=== PATIENT | male | born 1990 | race Caucasian/White ===

== ENCOUNTER 2018-08-16 14:51 | Emergency (ER) | payer MEDICAID ==
[2018-08-16 14:52] VITALS: BMI 25.8
[2018-08-16 15:04] VITALS: BP 113/67; PULSE 60; RESP 16; TEMP 98.4; O2SAT 99
--- NOTE | 2018-08-16 15:26 | ED PDOC ---
Upper Extremity Pain/Injury Time Seen by Provider: 08/16/18 14:53 Chief Complaint (Nursing): Upper Extremity Problem/Injury Chief Complaint (Provider): Right shoulder pain x 1 month History Per: Patient History/Exam Limitations: no limitations Onset/Duration Of Symptoms: Days Current Symptoms Are (Timing): Still Present Additional Complaint(s): 27 yo male comes on for evaluation of right shoulder pain. Pt reports pain x 1 month. Pt reports seeing a doctor at [facility] and having a normal XR of the right shoulder. Pt states 1 week ago he was doing a pull-up at the gym and felt a pop. Pt reports he is having a flakita pain, anterior shoulder when he lifts arm up and in front of him. Pt states he has not been taking anything for pain. Pt states he does not want repeat XR. Past Medical History Reviewed: Historical Data, Nursing Documentation, Vital Signs Vital Signs: Last Vital Signs Temp 98.4 F 08/16/18 14:58 Pulse 60 08/16/18 14:58 Resp 16 08/16/18 14:58 BP 113/67 08/16/18 14:58 Pulse Ox 99 08/16/18 14:58 - Medical History PMH: Asthma ( CHILDHOOD) Denies: Chronic Kidney Disease - Surgical History Surgical History: No Surg Hx - Family History Family History: States: No Known Family Hx - Home Medications Home Medications: Ambulatory Orders Medication Instructions Recorded Naproxen [Naprosyn] 500 mg PO BID PRN #20 tablet 08/16/18 - Allergies Allergies/Adverse Reactions: Allergies Allergy/AdvReac Type Severity Reaction Status Date / Time No Known Allergies Allergy Verified 09/17/15 09:42 Review of Systems ROS Statement: Except As Marked, All Systems Reviewed And Found Negative Constitutional: Negative for: Fever, Chills Cardiovascular: Negative for: Chest Pain, Palpitations Gastrointestinal: Negative for: Nausea, Vomiting Musculoskeletal: Positive for: Shoulder Pain Physical Exam - Reviewed Nursing Documentation Reviewed: Yes Vital Signs Reviewed: Yes - Physical Exam Appears: Positive for: Well, Non-toxic, No Acute Distress Head Exam: Positive for: ATRAUMATIC, NORMAL INSPECTION, NORMOCEPHALIC Skin: Positive for: Normal Color, Warm, DRY Eye Exam: Positive for: Normal appearance ENT: Positive for: Normal ENT Inspection Neck: Positive for: Normal Respiratory: Negative for: Accessory Muscle Use, Respiratory Distress Back: Positive for: Normal Inspection Extremity: Positive for: Normal ROM, Other (Pain with flexion). Negative for: Tenderness, Deformity, Swelling Neurologic/Psych: Positive for: Alert, Oriented - ECG O2 Sat by Pulse Oximetry: 99 Medical Decision Making Medical Decision Making: Discussed f/u MRI out-patient. Disposition - Clinical Impression Clinical Impression: Right shoulder pain - Patient ED Disposition Is Patient to be Admitted: No Counseled Patient/Family Regarding: Diagnosis, Need For Followup, Rx Given - Disposition Referrals: Mohinder Mitchell MD [Medical Doctor] - [facility] [Outside] [facility] [Outside] [facility] [Outside] Disposition: Routine/Home Disposition Time: 15:28 Condition: GOOD Prescriptions: Naproxen [Naprosyn] 500 mg PO BID PRN #20 tablet PRN Reason: Pain Instructions: Shoulder Pain (DC)
== END 2018-08-16 16:00 | disposition home or self-care (01) ==
LOC: H.ER 14:51
DX: M25.511 Pain in right shoulder (principal)